=== PATIENT | female | born 1970 | race Caucasian/White ===

== ENCOUNTER 2024-03-22 17:57 | Emergency (ER) | payer BC ==
[~2024-03-22] VITALS: Ht 162.6 cm; Wt 60.6 kg
[2024-03-22] MEDS ORDERED: HYDROCODON-ACE1 EA10 PO (19:43)
[2024-03-22] MEDS ORDERED: HYDROCODONE BIT/ACETAMINOPHEN 5/325 MG 1 TAB HOME.PACK PO PRN (19:45)
[2024-03-22 20:45] VITALS: BP 120/79
== END 2024-03-22 20:46 | disposition home or self-care (01) ==
LOC: ED 17:57
DX: S52.501A Unspecified fracture of the lower end of right radius, initial encounter for closed fracture (principal); W18.30XA Fall on same level, unspecified, initial encounter
CPT/HCPCS: 29125; 73110; 99283-25; A9270